=== PATIENT | female | born 1945 | race Caucasian/White ===

== ENCOUNTER 2017-02-17 08:42 | Day surgery (SDC) | payer MEDICARE ==
[~2017-02-17 08:42] MED LIST: DIPRIVAN 200 MG/20 ML IV ONE; Ketamine HCl 50 MG/ML IJ ONE
--- NOTE | 2017-02-17 08:54 | HP ---
DATE OF SURGERY: 02/17/2017 HISTORY OF PRESENT ILLNESS: The patient is a 71 year-old she chokes a lot with her lower esophagus most of the time, history of neck problems in the past. History of dilatation back in 2011 helped some, some burning and choking, solids worse occasionally than liquids. She had dysphagia lower esophagus. The patient for consideration of endoscopy. PAST MEDICAL HISTORY: Hypertension. PAST SURGICAL HISTORY: Knee replacement in the past. Back surgery in the past. Hysterectomy in the past. EGD with dilatation in the past. MEDICATIONS: Metoprolol, losartan. ALLERGIES: NKDA. FAMILY HISTORY: Negative for esophageal cancer. SOCIAL HISTORY: No smoking or alcohol abuse. REVIEW OF SYSTEMS: Twelve systems reviewed per admission assessment. No chest pain or palpitations other systems negative or noncontributory as above and per preadmission questionnaire. She had dilatation with Dr. Keene back in 2011. PHYSICAL EXAMINATION: GENERAL: No acute distress. HEENT: Sclerae nonicteric. NECK: No JVD. CHEST: Equal excursion, nonlabored breathing. CVS: Regular rate and rhythm. ABDOMEN: Soft. No peritoneal signs. EXTREMITIES: No significant edema. NEURO: Alert, moving extremities grossly symmetrically. No gross motor deficits noted. IMPRESSION: Dysphagia lower esophagus. I feel the patient would benefit from EGD possible biopsy, possible dilatation. Risks and benefits explained in detail but not limited to bleeding or infection, risk of bowel injury or perforation possibly requiring open procedure, small risk of missed or nondiagnosis or incomplete exam possibly requiring barium enema, other studies or procedures, as well as possible high risk of perforation on dilatation. She understands there is a possibility could need other dilatation down the road. She also understands that possibly may not improve her swallowing and may need further work up and/or testing or treatment. She understands and agrees to the planned procedure and will proceed with outpatient EGD, possible biopsy and possible dilatation as an outpatient.
[2017-02-17] MEDS ORDERED: Lactated Ringers 1,000 ML IV SCH (09:00)
[2017-02-17] MEDS ORDERED: Lactated Ringers 1,000 ML IV ONE (09:02)
[2017-02-17 12:20] VITALS: BP 166/95; PULSE 74; O2SAT 98
--- NOTE | 2017-02-17 12:59 | OP ---
SURGERY DATE/TIME: 02/17/2017 1025 PREOPERATIVE DIAGNOSES: 1) History of dysphagia. 2) History of prior esophageal dilatation. POSTOPERATIVE DIAGNOSES: 1) Symptomatic esophageal narrowing possible distal esophagus. 2) Prepyloric ulcer. 3) Mild gastritis. PROCEDURES: 1) EGD with cold biopsy of the antrum to evaluate for Helicobacter pylori. 2) Esophageal balloon dilatation distal esophagus with size 20 balloon dilator. 3) Esophageal dilatation proximal esophagus up to size 20 balloon dilator. SURGEON: Dr. Juan Alberto Villasenor. ANESTHESIA: MAC. ESTIMATED BLOOD LOSS: Minimal. INDICATIONS: As noted above. Risks and benefits explained in detail and not limited to and consent obtained. DESCRIPTION OF PROCEDURE AND FINDINGS: The patient was taken to the operating room. MAC anesthesia induced. After official time out and no disagreement with planned procedure, bite block positioned. Video gastroscope easily passed down the oropharynx. There was a little bit proximal esophageal narrowing and spasm. No evidence of any obvious masses, lesions. She had been complaining of having problems in this part of her throat and esophagus as well as swallowing. The scope was able to be passed down the distal part of the esophagus where the two areas had been dilated in the past. There was some esophageal narrowing. It was super tight and as she was having symptoms down there felt that balloon dilatation at the end of the procedure. There were no signs of any obvious masses in this area. The scope passed back down to the stomach. In the prepyloric area just right in front of the pylorus in the antral side was a punched out ulcer. Otherwise the scope was able to be passed into the small bowel and then around to the junction of the second and third portion of the duodenum. The duodenum and duodenal bulb grossly unremarkable. Back in the stomach cold biopsies taken of margin of ulcer to evaluate for Helicobacter pylori and path. On retroflex there is no evidence of any large hiatal hernia. Whether just a slight weakness there or not but no large hiatal hernia. There are no signs of any obvious mucosal lesions. The scope was withdrawn. Gastroesophageal junction was noted to be about 37 - 38 cm. Z-line was crisp. Just proximal to this there was esophageal spasm and narrowing whether slight Schatzki's ring or not but there is slight narrowing. She had complained of this area. It was felt best benefit to dilate this esophageal narrowing out. The scope is passed back down into the stomach. Balloon catheter inserted and pulled up into the distal esophagus and gradually inflated size 19 first and left for a minute or so and then up to size 20 balloon dilator for a couple of minutes. The balloon was then released. It was then pulled up into proximal esophageal narrowing and the inflated to size 19 once again and left for a minute or so and then increased up to size balloon dilator and left for a couple minutes, 2 to 2 1/2 minutes, and then released. When the catheter was removed the scope was then passed back down into the stomach. Good hemostasis noted at the biopsy site. The scope is slowly and carefully withdrawn. There is minimal ooze from abrasion in the distal and proximal esophagus but no evidence of any full thickness issues or injury. No signs of any active bleeding at this time. The scope is withdrawn. The patient tolerated the procedure well. Findings discussed with family out in the waiting area.
== END 2017-02-17 12:05 | disposition home or self-care (01) ==
LOC: SDC 08:42
PROVIDERS: ATTEND Surgery
PROC: 0DB68ZX Excision of Stomach, Via Natural or Artificial Opening Endoscopic, Diagnostic (ICD-10-PCS; principal; 2017-02-17)
PROC: 0D738ZZ Dilation of Lower Esophagus, Via Natural or Artificial Opening Endoscopic (ICD-10-PCS; 2017-02-17)
PROC: 0D718ZZ Dilation of Upper Esophagus, Via Natural or Artificial Opening Endoscopic (ICD-10-PCS; 2017-02-17)
DX: K22.2 Esophageal obstruction (principal); K25.9 Gastric ulcer, unspecified as acute or chronic, without hemorrhage or perforation; K29.70 Gastritis, unspecified, without bleeding
CPT/HCPCS: 36415; 43239; 43249; C1726; 00740; 99100; J2704

== ENCOUNTER 2017-06-02 08:13 | Day surgery (SDC) | payer MEDICARE ==
--- NOTE | 2017-05-31 15:13 | HP ---
DATE OF SURGERY: 06/02/2017 HISTORY OF PRESENT ILLNESS: The patient is a 72 year-old with some hiccups and some epigastric discomfort. She has prior history of prepyloric ulcer and is in need of follow up upper endoscopy at this time. PAST MEDICAL HISTORY: She has had hypertension, history of ulcer in the past. PAST SURGICAL HISTORY: Neck surgery, hysterectomy, cholecystectomy, knee replacement and endoscopy in the past. MEDICATIONS: Metoprolol, losartan. ALLERGIES: NKDA. FAMILY HISTORY: Negative in regards to this problem. SOCIAL HISTORY: No smoking or alcohol abuse. REVIEW OF SYSTEMS: Twelve systems reviewed per admission assessment. No chest pain or palpitations other systems negative or noncontributory as above and per preadmission questionnaire. PHYSICAL EXAMINATION: GENERAL: No acute distress. HEENT: Sclerae nonicteric. NECK: No JVD. CHEST: Equal excursion, nonlabored breathing. CVS: Regular rate and rhythm. ABDOMEN: Soft. No peritoneal signs. EXTREMITIES: No significant edema. NEURO: Alert, moving extremities symmetrically. No gross motor deficits noted. IMPRESSION: History of prepyloric ulcer in need of follow up upper endoscopy. Risks and benefits explained in detail including but not limited to bleeding or infection, risk of bowel injury or perforation possibly requiring open procedure, risk of missed or nondiagnosis or incomplete exam possibly requiring other studies, general risk of anesthesia or sedation but not limited to. She understands and agrees to the planned procedure and will proceed with EGD possible biopsy as an outpatient.
[~2017-06-02 08:13] MED LIST changes: -DIPRIVAN 200 MG/20 ML IV ONE; -Ketamine HCl 50 MG/ML IJ ONE; +Lactated Ringers 1,000 ML IV SCH
[2017-06-02] MEDS ORDERED: DIPRIVAN 200 MG/20 ML IV ONE (08:14)
[2017-06-02] MEDS ORDERED: Ketamine HCl 50 MG/ML IV ONE (08:14)
[2017-06-02] MEDS ORDERED: Lactated Ringers 1,000 ML IV ONE (08:18)
[2017-06-02 11:02] VITALS: O2SAT 97
[2017-06-02 11:32] VITALS: BP 132/72; PULSE 71
--- NOTE | 2017-06-02 13:08 | OP ---
SURGERY DATE/TIME: 06/02/2017 1010 PREOPERATIVE DIAGNOSIS: History of prepyloric ulcers. POSTOPERATIVE DIAGNOSES: 1) Gastritis. 2) Prepyloric ulcers some improvement since last endoscopy. PROCEDURE: EGD with cold biopsy of the antrum and margin of prepyloric ulcers for path and to evaluate for Helicobacter pylori. SURGEON: Dr. Juan Alberto Villasenor. ANESTHESIA: MAC. ESTIMATED BLOOD LOSS: Minimal. INDICATIONS: As noted above. Risks and benefits explained in detail and not limited to and consent obtained. DESCRIPTION OF PROCEDURE AND FINDINGS: The patient is taken to the operating room. MAC anesthesia introduced. After official time out and no disagreement with planned procedure, bite block positioned. Video gastroscope easily passed down the esophagus through the patent pylorus to the junction of the second and third portion of the duodenum. Duodenum and duodenal bulb grossly unremarkable. Back at the prepyloric area there was a prepyloric ulcer. It seemed to be a little bit better than last time. It was persistent. It should be noted the patient has taken Protonix but is still taking Naprosyn according to the medication list. There were little tiny aphthous ulcers right in the just proximal or right at the pyloric channel, prepyloric area ulcer. On retroflex she had small hiatal hernia. No signs of any other more proximal ulcers, masses or polyps. Gastroesophageal junction about 39 cm. The z-line was crisp. No significant signs of other esophagitis or any other esophageal mucosal lesions on withdrawal of the scope. The scope is withdrawn. The patient tolerated the procedure well. There were no immediate complications. It was felt she could consider trying to use other alternatives other than Naprosyn given her persistent ulcers even despite proton pump inhibitors. Otherwise could consider gastrointestinal or other work up although her ulcers do not seem any worse. May try another alternative of Naprosyn to allow for complete healing.
== END 2017-06-02 11:35 | disposition home or self-care (01) ==
LOC: SDC 08:13
PROVIDERS: ATTEND Surgery
PROC: 0DB78ZX Excision of Stomach, Pylorus, Via Natural or Artificial Opening Endoscopic, Diagnostic (ICD-10-PCS; principal; 2017-06-02)
DX: K29.70 Gastritis, unspecified, without bleeding (principal); Z87.11 Personal history of peptic ulcer disease; I10 Essential (primary) hypertension
CPT/HCPCS: 00740; 36415; 88305; 88312; 99100; J2704

== ENCOUNTER 2017-09-22 08:15 | Day surgery (SDC) | payer MEDICARE ==
--- NOTE | 2017-09-19 14:58 | HP ---
DATE OF SURGERY: 09/22/2017 HISTORY OF PRESENT ILLNESS: The patient is a 72 year-old has prior history of epigastric pain and ulcer in the past. She improved on follow up endoscopy but had some increased epigastric pain recently with some bloating and also had some rectal bleeding recently. The last colonoscopy was five years or so ago. She is in need of follow up colonoscopy with rectal bleeding as well as she had increased epigastric pain and prior history of ulcer disease, need follow up upper endoscopy for further evaluation. PAST MEDICAL HISTORY: Hypertension, reflux, ulcer disease. PAST SURGICAL HISTORY: She had knee replaced, back surgery, hysterectomy, cholecystectomy and also endoscopy in the past. MEDICATIONS: Metoprolol, losartan, Prilosec. ALLERGIES: RANOLAZINE, CELECOXIB. FAMILY HISTORY: Negative in regards to this problem. SOCIAL HISTORY: No smoking or alcohol abuse. REVIEW OF SYSTEMS: Twelve systems reviewed per admission assessment. No chest pain or palpitations other systems negative or noncontributory as above and per preadmission questionnaire. PHYSICAL EXAMINATION: GENERAL: No acute distress. HEENT: Sclerae nonicteric. NECK: No JVD. CHEST: Equal excursion, nonlabored breathing. CVS: Regular rate and rhythm. ABDOMEN: Soft. No peritoneal signs. She has some mild tenderness epigastrium. EXTREMITIES: No significant edema. NEURO: Alert, oriented, moving extremities symmetrically. No gross motor deficits noted.
[2017-09-22] MEDS ORDERED: DIPRIVAN 200 MG/20 ML IV ONE (08:16)
[2017-09-22] MEDS ORDERED: Ketamine HCl 50 MG/ML IJ ONE (08:16)
[2017-09-22] MEDS ORDERED: Lactated Ringers 1,000 ML IV ONE ×2 (08:35→09:10)
[2017-09-22 12:46] VITALS: O2SAT 95
[2017-09-22 12:47] VITALS: BP 151/84; PULSE 88
--- NOTE | 2017-09-23 08:23 | OP ---
SURGERY DATE/TIME: 09/22/2017 1110 PREOPERATIVE DIAGNOSES: 1) History of increased epigastric pain, prior history of peptic ulcer disease. 2) Rectal bleeding, need for follow up colonoscopy. POSTOPERATIVE DIAGNOSES: 1) Pyloric channel ulcer with some minimal to mild gastritis. 2) Slight hiatal hernia. 3) Poor colon prep limiting the exam particularly right colon. 4) Very tortuous colon. 5) Small raised lesion rectum versus hyperplastic lesion. PROCEDURES: 1) EGD with cold biopsy of small bowel to evaluate for celiac sprue. 2) Cold biopsy of the antrum to evaluate for Helicobacter pylori. 3) Colonoscopy to cecum and tip of the terminal ileum with hot biopsy rectum. SURGEON: Dr. Juan Alberto Villasenor. ANESTHESIA: MAC. ESTIMATED BLOOD LOSS: Minimal. INDICATIONS: As noted above. Risks and benefits explained in detail and not limited to and consent obtained. DESCRIPTION OF PROCEDURE AND FINDINGS: The patient is taken to the endoscopy suite. MAC anesthesia introduced. After official time out and no disagreement with planned procedure, bite block positioned. Video gastroscope easily passed down the esophagus. In the gastroesophageal junction Z-line was crisp. No signs of any mendez esophagitis or esophageal lesion. There was a very slight hiatal hernia. Scope passed down to the stomach. There was some minimal to mild gastritis with evidence of an old villous superficial erosion. She did have a pyloric channel area ulcer with some inflammation, this did not seem to be as large as the very initial ulcer but whether it did improve more and then get a little worse recently. She did have a pyloric channel ulcers. Otherwise the scope passed into the duodenal bulb. The first and second portion of the duodenum to the junction of the second and third portion. On withdrawal of the scope cold biopsies taken to evaluate for celiac sprue. Otherwise no obvious masses in the duodenum or duodenal bulb. Back in the stomach there had been just a little raw area passing the scope past the ulcer. No active bleeding from the ulcer itself just from the inflammation around it. Cold biopsy taken in the antrum to evaluate for Helicobacter pylori. Good hemostasis noted. Otherwise on retroflex again very slight hiatal hernia nothing that needed surgical repair. The scope was straightened, pulled back to gastroesophageal junction. The Z-line was crisp. No signs of any esophageal mucosal lesions. No signs of any narrowing. The scope is withdrawn. The patient tolerated this portion of the procedure well. Her daughter was instructed she should take a proton pump inhibitor maybe twice a day for a week and then cut back once a day while awaiting the Helicobacter pylori results. Attention was then turned to the colonoscopy. Digital rectal exam did not reveal any rectal masses. She did have some small internal and external hemorrhoids. Video colonoscope inserted and passed up through the very tortuous sigmoid, descending and transverse colon. Looping down the light could be transluminated in far deep right lower quadrant. However with external palpation, pressure and two different individuals pressing on the abdomen at the same time the scope was able to be passed around finally to the cecum, appendiceal orifice and valve visualized and the very tip of the terminal ileum was visualized and grossly unremarkable. Prep overall was poor particularly in the right colon with some semi-solid liquidy stools, some solid stool limiting the exam. The scope is slowly and carefully withdrawn. There were no signs of any large polyps, masses or obstructing lesions throughout the colon. She did have some diverticulosis, few rare diverticula. She did have some small internal and external hemorrhoids otherwise there was a very small 2 mm or less raised lesion in distal rectum which was removed with hot biopsy forceps with brief burst of cautery. Good hemostasis noted. Whether this is a simple hyperplasia of the mucosa versus early polyp it was removed with hot biopsy forceps. The scope is withdrawn. The patient tolerated the procedure well. Again, it was a quite difficult colon exam given her very tortuous colon but accomplished slowly and carefully as safe as possible. Findings discussed with the family out in the waiting area. She was transferred to the recovery room in stable condition.
== END 2017-09-22 12:45 | disposition home or self-care (01) ==
LOC: SDC 08:15
PROVIDERS: ATTEND Surgery
PROC: 0DB78ZX Excision of Stomach, Pylorus, Via Natural or Artificial Opening Endoscopic, Diagnostic (ICD-10-PCS; principal; 2017-09-22)
PROC: 0DB88ZX Excision of Small Intestine, Via Natural or Artificial Opening Endoscopic, Diagnostic (ICD-10-PCS; 2017-09-22)
PROC: 0DBB8ZX Excision of Ileum, Via Natural or Artificial Opening Endoscopic, Diagnostic (ICD-10-PCS; 2017-09-22)
DX: K25.9 Gastric ulcer, unspecified as acute or chronic, without hemorrhage or perforation (principal); R10.13 Epigastric pain; Z87.11 Personal history of peptic ulcer disease; K62.5 Hemorrhage of anus and rectum; K29.70 Gastritis, unspecified, without bleeding; K44.9 Diaphragmatic hernia without obstruction or gangrene; I10 Essential (primary) hypertension; Z79.899 Other long term (current) drug therapy
CPT/HCPCS: 00812; 93005; 99100; J2704

== ENCOUNTER 2019-01-15 13:51 | Emergency (ER) | payer MEDICARE ==
[2019-01-15 14:16] VITALS: PULSE 74; O2SAT 99
--- NOTE | 2019-01-15 14:24 | ERPHSYRPT ---
- History of Present Illness Time Seen by Provider: 01/15/19 14:21 Source: patient Patient Subjective Stated Complaint: I have been on keflex for the past few days for poss uti but I having trouble urinating and the back pain is getting worse. Triage Nursing Assessment: AAox3, color good, walked in, resp easy, lungs clear , no edema to extremeties. Pt states she has urinary hesitancy past couple days and states has feeling of fullnes in abd. Also c/o pain in left lower back that radiates to left groin area. Physician History: pt sent by Dr Cleaning for difficulty urinating, currently treated for uti w/ keflex, no fever, no incont, +urgency, no NV Allergies/Adverse Reactions: ranolazine [From Ranexa] Allergy (Mild, Verified 09/22/17 09:06) itching and constipation celecoxib [From Celebrex] Adverse Reaction (Severe, Verified 09/22/17 09:06) Nausea and Vomiting Home Medications: Cholecalciferol (Vitamin D3) [Vitamin D3] 2,000 unit PO DAILY 09/25/13 [History] Metoprolol Succinate 25 mg PO DAILY 09/25/13 [History] PANTOPRAZOLE 40 mg Tablet [Protonix 40MG Tablet] 40 mg PO DAILY 05/30/17 [ History] Fluoxetine HCl [Prozac] 1 tab PO DAILY 09/09/17 [History] Losartan Potassium 1 tab PO DAILY 09/09/17 [History] Cephalexin Mh 500 mg [Keflex 500 mg] 500 mg PO QID 01/15/19 [History] Hx Tetanus, Diphtheria Vaccination/Date Given: Yes Hx Influenza Vaccination/Date Given: Yes Hx Pneumococcal Vaccination/Date Given: No Immunizations Up to Date: Yes - Review of Systems Constitutional: No Fever Eyes: No Eye Redness Ears, Nose, & Throat: No Nose Congestion Respiratory: No Cough, No Dyspnea Cardiac: No Chest Pain Abdominal/Gastrointestinal: No Abdominal Pain, No Vomiting Genitourinary Symptoms: Dysuria, Frequency, Hesitancy, Urgency, No Incontinence Musculoskeletal: Back Pain Skin: No Rash Neurological: No Dizziness - Past Medical History Pertinent Past Medical History: Yes Neurological History: No Pertinent History ENT History: Cataracts Cardiac History: Angina, High Cholesterol, Hypertension Respiratory History: No Pertinent History Endocrine Medical History: No Pertinent History Musculoskeletal History: Arthritis GI Medical History: GERD, Ulcer History: No Pertinent History Psycho-Social History: Depression Female Reproductive Disorders: No Pertinent History Other Medical History: bladder infection, finished antibiotics 10days ago, compression of cervical vertebrae - Past Surgical History Past Surgical History: Yes Neuro Surgical History: No Pertinent History Cardiac: No Pertinent History Respiratory: No Pertinent History Gastrointestinal: No Pertinent History Genitourinary: No Pertinent History Musculoskeletal: Orthopedic Surgery Female Surgical History: Section, Hysterectomy Other Surgical History: cataract in left eye. Back and R knee. - Social History Smoking Status: Never smoker Exposure to second hand smoke: Yes Drug Use: none Patient Lives Alone: Yes - Female History Hx Now: No - Nursing Vital Signs Nursing Vital Signs: Initial Vital Signs Temperature 97.7 F 01/15/19 14:04 Pulse Rate 74 01/15/19 14:04 Respiratory Rate 18 01/15/19 14:04 Blood Pressure 150/79 01/15/19 14:04 O2 Sat by Pulse Oximetry 99 01/15/19 14:04 Pain Scale Pain Intensity 8 - Physical Exam General Appearance: no apparent distress Eye Exam: eyes nml inspection Neck Exam: normal inspection Respiratory Exam: normal breath sounds Cardiovascular Exam: regular rate/rhythm Gastrointestinal/Abdomen Exam: soft, No tenderness Back Exam: normal range of motion, No vertebral tenderness Extremity Exam: normal inspection Neurologic Exam: alert, oriented x 3, cooperative Skin Exam: normal color, warm, dry SpO2 Interpretation: normal SpO2: 99 - Course Nursing assessment & vital signs reviewed: Yes - CT Exams Abdomen/Pelvis CT Interpretation: Negative, Discussed w/radiologist Ordered Tests: Active Orders 24 hr Category Date Time Status Avitia [Catheter-Balaton Avitia] STAT Care 01/15/19 14:20 Active ABDOMEN AND PELVIS W/0 CONTRAS [CT] Stat Exams 01/15/19 14:40 Completed - Progress Progress: improved Progress Note: 01/15/19 15:38 150 cc urine per avitia, treatment and disposition d/w Dr Cleaning, oral fluids, return if worse, continue outpatient antibiotic - Departure Departure Disposition: Home Clinical Impression: UTI (urinary tract infection) Qualifiers: Urinary tract infection type: acute cystitis Hematuria presence: with hematuria Qualified Code(s): N30.01 - Acute cystitis with hematuria Condition: Stable Critical Care Time: No Referrals: SUZETTE CLEANING [Primary Care Provider] - Instructions: Urinary Retention (DC)
--- NOTE | 2019-01-15 15:24 | XRAY ---
Indication: Low back/left flank pain. Difficulty urinating. Renal stone. Multiple contiguous axial images obtained through the abdomen and pelvis without contrast using renal stone protocol. Comparison: September 07, 2018. Lung bases again demonstrates bibasilar atelectasis/scarring and right posterior calcified granuloma. No infiltrate or effusion. Heart is not enlarged. Stable small hiatal hernia. Stable punctate right renal cortical calcifications and left renal cyst. Again no renal calculus or evidence for obstructive uropathy in either system. Urinary bladder demonstrates new tiny air bubble either iatrogenic from recent catheterization versus gas-forming bacterial infection. Noncontrasted stomach and bowel loops appear nonobstructed. Normal appendix. Again mild scattered colonic fecal debris greatest in the right hemicolon. Stable descending and sigmoid diverticulosis. Stable hepatic/splenic calcified granulomas, cholecystectomy, and hysterectomy. No free fluid/air. Remaining liver, pancreas, spleen, adrenal glands, kidneys, ureters, and bladder appear unremarkable for noncontrast exam. Stable moderate aortoiliac calcifications without AAA. Osseous structures again demonstrates advanced multilevel degenerative spondylosis, dextrorotoscoliosis, and L4-L5 fusion surgery/laminectomy with intact posterior spinal hardware. Impression: 1. Negative renal calculus or evidence for obstructive uropathy. New urinary bladder air bubble either iatrogenic versus gas-forming bacterial infection. Stable right renal cortical punctate calcifications and left renal cyst. 2. Again incidental colonic diverticulosis, small hiatal hernia, degenerative spondylosis, dextrorotoscoliosis, lower lumbar surgery, and evidence for old granulomatous disease. CT DI 16.92
[2019-01-15 16:03] VITALS: BP 139/90
== END 2019-01-15 16:03 | disposition home or self-care (01) ==
LOC: ED 13:51
DX: N30.01 Acute cystitis with hematuria (principal); I10 Essential (primary) hypertension; E78.00 Pure hypercholesterolemia, unspecified; K21.9 Gastro-esophageal reflux disease without esophagitis; M19.90 Unspecified osteoarthritis, unspecified site; Z79.899 Other long term (current) drug therapy; F32.9 Major depressive disorder, single episode, unspecified
CPT/HCPCS: 51702; 74176; 99284

== ENCOUNTER 2019-04-23 13:59 | Inpatient (IN) | payer MEDICARE | END 2019-04-30 16:20 | disposition home or self-care (01) | LOC: MED SURG 13:59 ==

== ENCOUNTER 2019-07-26 08:19 | Day surgery (SDC) | payer MEDICARE ==
--- NOTE | 2019-07-26 07:57 | HP ---
DATE OF SURGERY: 07/26/2019 HISTORY OF PRESENT ILLNESS: The patient is a 74 year-old with dysphagia, choking at a restaurant, upper mid esophagus. She is in need of upper endoscopy possible biopsy, possible dilatation. PAST MEDICAL HISTORY: She had some pyloric stenosis in the past, hiatal hernia in the past, anxiety and depression, hypertension, osteoarthritis, peptic ulcer disease in the past. She had some arthritis. PAST SURGICAL HISTORY: Knee surgery. Back surgery. Hysterectomy. Shoulder surgery. Colonoscopy. EGD. Knee replacement in the past. MEDICATIONS: She has been on atorvastatin, buspirone, Colace, isosorbide mononitrate, levothyroxine, Linzess, losartan, metoprolol, nitroglycerin, sublingual omeprazole. She has been on [id number] tablet. She has been on Prozac and Ventolin HFA. ALLERGIES: RANOLAZINE, CELECOXIB. FAMILY HISTORY: Negative in regards to this problem. SOCIAL HISTORY: No alcohol abuse. REVIEW OF SYSTEMS: Fourteen systems reviewed. No chest pain or palpitations other systems negative or noncontributory as above and per preadmission questionnaire. PHYSICAL EXAMINATION: GENERAL: No acute distress. HEENT: Sclerae nonicteric. NECK: No JVD. CHEST: Equal excursion, nonlabored breathing. CVS: Regular rate and rhythm. ABDOMEN: Soft. No peritoneal signs. EXTREMITIES: No significant edema. NEURO: Alert, oriented, moving extremities symmetrically. No gross motor deficits noted. IMPRESSION: Dysphagia. I feel the patient needs EGD, possible biopsy, possible dilatation. Risks and benefits explained in detail including but not limited to bleeding or infection, risk of bowel injury or perforation possibly requiring open procedure, risk of missed or nondiagnosis or incomplete exam possibly requiring barium swallow, other studies or procedures. General risk of anesthesia or sedation. She understands possibility if dilatation improves her swallowing may need to be repeated down the road or possibly it could be more of a functional neurologic issue that may not improve with dilatation and may require further work up and/or testing, other studies or procedures. She understands and agrees to the planned procedure and will proceed with EGD with possible biopsy, possible dilatation as an outpatient.
[2019-07-26] MEDS ORDERED: Lactated Ringers 1,000 ML IV ONE (08:29)
[2019-07-26] MEDS ORDERED: Lactated Ringers 1,000 ML IV SCH (08:30)
[2019-07-26] MEDS ORDERED: Ketamine HCl 50 MG/ML ONE (10:24)
[2019-07-26] MEDS ORDERED: DIPRIVAN 200 MG/20 ML IV ONE (10:24)
[2019-07-26 11:59] VITALS: BP 148/80; PULSE 74; O2SAT 94
--- NOTE | 2019-07-27 08:01 | OP ---
SURGERY DATE/TIME: 07/26/2019 1025 PREOPERATIVE DIAGNOSIS: History of choking episodes and dysphasia, need for upper endoscopy. POSTOPERATIVE DIAGNOSES: 1) Mild erosive gastritis in the antrum. 2) Proximal esophageal spasm and narrowing without evidence of any mass. 3) Two lesser extent distal esophageal narrowing and spasm requiring dilatation. PROCEDURES: 1) EGD with cold biopsy of the antrum to evaluate for Helicobacter pylori. 2) Random cold biopsy to the esophagus to evaluate for eosinophilic esophagitis. 3) Esophageal balloon dilatation symptomatic proximal esophageal narrowing and spasm (size 20 balloon). 4) Distal esophageal narrowing and spasm dilatation (size 20 balloon). SURGEON: Dr. Juan Alberto Villasenor. ANESTHESIA: MAC. ESTIMATED BLOOD LOSS: Minimal. INDICATIONS: As noted above. Risks and benefits explained in detail and not limited to and consent obtained. DESCRIPTION OF PROCEDURE AND FINDINGS: The patient is taken to the operating room. MAC anesthesia introduced. After official time out and no disagreement with planned procedure, bite block positioned. Video gastroscope passed down the oropharynx with some proximal esophageal narrowing and spasm. This seemed to be where she was having choking area. There was no evidence of any mass or lesion to biopsy but definitely a narrowed area there. The scope was able to be just passed through here and the distal esophagus seemed to have a little bit of narrowing and spasm in this area. There was concern whether this may cause some issues down the road it was felt this warranted dilatation. The scope was able to be just passed through here this was not quite as tight as the upper area. The scope passed through the patent pylorus to the junction of the second and third portion of the duodenum. Duodenum and duodenal bulb were grossly unremarkable. There was some erosive gastritis in the pyloric channel antral area. No gross ulceration. Cold biopsy taken to evaluate for Helicobacter pylori. On retroflex there is no significant hiatal hernia. The scope was straightened. Gastroesophageal junction about 40 cm. Z-line was fairly crisp. Given her spasms some random cold biopsies were taken for eosinophilic esophagitis in the esophagus. Otherwise scope passed back down into the stomach. Balloon catheter carefully passed through under direct vision and then pulled back to the distal esophageal narrowing this is slowly and carefully balloon inflated to 19 for about 40 to 45 seconds and then finally the size 20 balloon dilator approximately 2 minutes. The balloon was then decompressed. There was no evidence of mucosal lesions more proximal esophagus. The balloon catheter is carefully pulled up through the proximal esophageal narrowing and spasm area. The balloon was carefully inflated 18 for 30 to 45 seconds size 19 for approximately 45 seconds and then finally size 20 balloon dilator a little bit over 1 to 1 1/2 minutes. The patient stopped maintaining her saturations and anesthesia asked to remove the balloon at this point. It was deflated and removed. The patient's saturations were fine. Once the balloon catheter was removed the scope much more easily passed through this proximal distal area. Minimal abrasion proximal esophagus and distal esophagus. No evidence of any full thickness issues or injury. The scope is withdrawn. The patient tolerated the procedure well. There were no immediate complications.
== END 2019-07-26 11:50 | disposition home or self-care (01) ==
LOC: SDC 08:19
PROVIDERS: ATTEND Surgery
DX: K29.00 Acute gastritis without bleeding (principal); K22.4 Dyskinesia of esophagus; K22.2 Esophageal obstruction; R47.02 Dysphasia; R09.89 Other specified symptoms and signs involving the circulatory and respiratory systems; F41.9 Anxiety disorder, unspecified; F32.9 Major depressive disorder, single episode, unspecified; I10 Essential (primary) hypertension; M19.90 Unspecified osteoarthritis, unspecified site; Z87.11 Personal history of peptic ulcer disease
CPT/HCPCS: 99100; J2704

== ENCOUNTER 2020-09-27 11:26 | Day surgery (SDC) | payer MEDICARE ==
[2012-07-02 10:50] VITALS: BP 128/63
[2020-09-27] MEDS ORDERED: Depo-Medrol 40 MG/ML IM ONE (11:27)
[2020-09-27] MEDS ORDERED: BUPIVACAINE 0.5% VIAL IJ ONE (11:27)
[2020-09-27] MEDS ORDERED: Ketamine HCl 50 MG/ML ONE (13:23)
[2020-09-27] MEDS ORDERED: DIPRIVAN 200 MG/20 ML IV ONE (13:23)
--- NOTE | 2020-09-27 14:12 | XRAY ---
Indication: Right SI joint injection. Intraoperative fluoroscopy was provided for 16 seconds. 2 digital spot images submitted for interpretation demonstrates posterior needle tip projecting over the inferior right SI joint. Correlate with intraoperative findings/report.
--- NOTE | 2020-09-27 15:05 | XRAY ---
16 seconds of fluoroscopy was used in surgery for a right SI joint injection.
[2020-09-27] MEDS ORDERED: Lactated Ringers 1,000 ML IV ONE (15:56)
== END 2020-09-27 13:42 | disposition home or self-care (01) ==
LOC: SDC-PAIN 11:26
PROVIDERS: ATTEND Psychiatry & Neurology Pain Medicine
DX: M46.1 Sacroiliitis, not elsewhere classified (principal); I10 Essential (primary) hypertension; K21.9 Gastro-esophageal reflux disease without esophagitis; F41.9 Anxiety disorder, unspecified; Z79.899 Other long term (current) drug therapy
CPT/HCPCS: 27096; 72020; 77002; G0260; 99100; J1030; J2704

== ENCOUNTER 2022-03-14 13:39 | Emergency (ER) | payer MEDICARE ==
--- NOTE | 2022-03-14 14:35 | XRAY ---
Indication: Cough. Positive Covid 19. Comparison: July 09, 2021. Portable chest again demonstrates minimal bibasilar discoid atelectasis/scarring and small right base calcified granuloma. Remaining heart and lungs unremarkable again with incidental tortuous descending aorta. Bony thorax intact again with osteopenia, degenerative changes, and double curvature scoliosis. Impression: Continued nonacute chest with chronic features.
[2022-03-14 14:48] LABS: Absolute Neutrophil Ct (ANC) 3.25 x10^3/uL (1.4-6.9); Basophil (Absolute #) 0.03 x10^3/uL (0-0.4); Eosinophil % 0.2 % (0.00-5.0); Eosinophil (Absolute #) 0.01 x10^3/uL (0-0.5); Hematocrit 34.3 % (35-47); Hemoglobin 11.3 g/dL (12.0-16.0); Lymphocyte (Absolute #) 1.57 x10^3/uL (1.0-4.6); Lymphocytes % 28.3 % (24.0-44.0); Mean Cell Volume 99.1 fL (78-100); Mean Corpuscular Hemoglobin 32.7 pg (26-32); Mean Corpuscular Hgb Concent. 32.9 g/dL (32-36); Mean Platelet Volume 10.8 fL (7.5-11.0); Monocyte (Absolute #) 0.67 x10^3/uL (0.0-1.3); Monocytes % 12.1 % (0.0-12.0); Neutrophil % 58.5 % (36.0-66.0); Platelet Count 208 x10^3/uL (150-450); Red Blood Count 3.46 x10^6/uL (4.1-5.4); Red Cell Distribution Width 11.9 % (11.5-14.0); White Blood Count 5.6 x10^3/uL (4.0-10.5)
[2022-03-14 15:01] LABS: ALBUMIN 4.1 g/dL (3.5-5.0); ANION GAP 12.6 MEQ/L (5-15); BILIRUBIN,TOTAL 0.3 mg/dL (0.2-1.3); Calcium 9.1 mg/dL (8.4-10.2); Creatinine 1 1.51 mg/dL (0.52-1.04); EST GLOMERULAR FILTRATION RATE 35.4 ML/MIN; Potassium 4.5 mmol/L (3.5-5.1); Total Protein 7.1 g/dL (6.3-8.2)
[2022-03-14 15:04] VITALS: BP 104/63; PULSE 64; O2SAT 98
--- NOTE | 2022-03-14 15:40 | ERPHSYRPT ---
- History of Present Illness Time Seen by Provider: 03/14/22 13:42 Source: patient, family Exam Limitations: no limitations Patient Subjective Stated Complaint: Pt states "I do not feel well. I had a home test for covid yesterday." Triage Nursing Assessment: Pt presented alert and oriented X 3, skin pwd Pt ambulates with an upright steady gait, able to speak in clear full sentences pt in no apaprent respiratory distress. Pt resting comfortably on the bed. Physician History: 76 years old female presented in the ER with 1 week history of cough congestion, body aches, low-grade subjective fever or chills, fatigue and tiredness. She was tested positive for COVID-19 yesterday. Today she coughed up couple of times and checked her home SPO2 pulse ox which was in mid 80s. Patient walked in the ER without any difficulty breathing and is saturating around 97% on room air. Denies any chest pain palpitations or shortness of breath. She wants to make sure that she has no pneumonia. Timing/Duration: week(s) (1), gradual onset, worse Cough Quality/Degree: dry cough, productive cough Possible Cause: no prior episodes Modifying Factors: Improves With: albuterol inhaler. Worsens With: coughing, exertion Associated Symptoms: chills, chest pain/soreness, cough, muscle aches Allergies/Adverse Reactions: ranolazine [From Ranexa] Allergy (Mild, Verified 07/26/19 09:00) itching and constipation celecoxib [From Celebrex] Adverse Reaction (Severe, Verified 07/26/19 09:00) Nausea and Vomiting Home Medications: Atorvastatin Calcium [Lipitor] 10 mg PO DAILY 04/23/19 [History] Isosorbide Mononitrate 30 mg [Imdur 30 MG] 30 mg PO DAILY 04/23/19 [History] Metoprolol Tartrate 25 mg [Lopressor 25MG Tab] 25 mg PO BID 04/23/19 [History] Buspirone HCl 7.5 mg PO BID 07/20/19 [History] Omeprazole 20 mg PO DAILY 07/20/19 [History] Venlafaxine HCl [Effexor Xr] 150 mg PO DAILY 07/26/19 [History] Amlodipine Besylate [Norvasc] 2.5 mg PO DAILY 03/14/22 [History] Hx Tetanus, Diphtheria Vaccination/Date Given: Yes Hx Influenza Vaccination/Date Given: Yes Hx Pneumococcal Vaccination/Date Given: No Immunizations Up to Date: Yes Travel Risk - International Travel Have you traveled outside of the country in past 3 weeks: No - Coronavirus Screening Are you exhibiting any of the following symptoms?: Yes Symptoms: Cough: New Onset, Headaches/Body Aches/Fatigue Close contact with a COVID-19 positive Pt in past 14-21 Days: No - Vaccine Status Have you recieved a Covid-19 vaccination: Yes Clinical Specialist: [employer] - Vaccination Dates Date of 2cond Vaccination (if applicable): 2020 - Review of Systems Constitutional: Chills, Fatigue, Weakness Eyes: No Symptoms Ears, Nose, & Throat: Nose Congestion, Throat Swelling Respiratory: Cough Cardiac: No Symptoms Abdominal/Gastrointestinal: No Symptoms Musculoskeletal: Back Pain Skin: No Symptoms Neurological: No Symptoms Endocrine: No Symptoms Hematologic/Lymphatic: No Symptoms - Past Medical History Pertinent Past Medical History: Yes Neurological History: No Pertinent History ENT History: Cataracts Cardiac History: Angina, High Cholesterol, Hypertension Respiratory History: No Pertinent History Endocrine Medical History: Hypothyroidism Musculoskeletal History: Other GI Medical History: GERD, Ulcer History: No Pertinent History Psycho-Social History: Anxiety, Depression Female Reproductive Disorders: No Pertinent History Other Medical History: PT. HAD R and left total knee replacement SEVERAL YEARS AGO; HX LB SX (FUSION) SEVERAL YEARS AGO - Past Surgical History Past Surgical History: Yes Neuro Surgical History: No Pertinent History Cardiac: No Pertinent History Respiratory: No Pertinent History Gastrointestinal: No Pertinent History Genitourinary: No Pertinent History Musculoskeletal: Orthopedic Surgery Female Surgical History: Section, Hysterectomy Other Surgical History: cataract in left eye. Back and R knee, left knee - Social History Smoking Status: Never smoker Exposure to second hand smoke: Yes Drug Use: none Patient Lives Alone: No - Nursing Vital Signs Nursing Vital Signs: Initial Vital Signs Temperature 97.5 F 03/14/22 13:44 Pulse Rate 71 03/14/22 13:44 Respiratory Rate 03/14/22 13:44 Blood Pressure 110/72 03/14/22 13:44 O2 Sat by Pulse Oximetry 96 03/14/22 13:44 Pain Scale Pain Intensity 4 - Physical Exam General Appearance: no apparent distress, alert Eye Exam: PERRL/EOMI, eyes nml inspection Ears, Nose, Throat Exam: normal ENT inspection, pharynx normal Neck Exam: normal inspection, supple, full range of motion Respiratory Exam: normal breath sounds, lungs clear Cardiovascular Exam: regular rate/rhythm, normal heart sounds Gastrointestinal/Abdomen Exam: soft, normal bowel sounds, No tenderness Back Exam: normal inspection Extremity Exam: normal inspection, normal range of motion Neurologic Exam: alert, oriented x 3, cooperative Skin Exam: normal color SpO2 Interpretation: normal SpO2: 98 O2 Delivery: Room Air Ordered Tests: Active Orders 24 hr Category Date Time Status CHEST 1 VIEW (PORTABLE) Stat Exams 03/14/22 14:15 Completed BLOOD CULTURE Stat Lab 03/14/22 14:36 Received CBC W DIFF Stat Lab 03/14/22 14:15 Completed CMP Stat Lab 03/14/22 14:15 Completed Lactic Acid Stat Lab 03/14/22 14:15 Completed PROCALCITONIN Stat Lab 03/14/22 14:15 Completed TROPONIN Q3H Lab 03/14/22 14:15 Completed TROPONIN Q3H Lab 03/14/22 17:15 Ordered TROPONIN Q3H Lab 03/14/22 20:15 Ordered TROPONIN Q3H Lab 03/14/22 23:15 Ordered TROPONIN Q3H Lab 03/15/22 02:15 Ordered UA W/RFX CULTURE Stat Lab 03/14/22 Ordered Lab/Rad Data: Laboratory Result Diagrams 03/14/22 14:15 03/14/22 14:15 Laboratory Results 03/14/22 03/14/22 03/14/22 Range/Units 14:15 14:15 14:15 WBC (4.0-10.5) x10^3/uL RBC (4.1-5.4) x10^6/uL Hgb (12.0-16.0) g/dL Hct (35-47) % MCV (78-100) fL MCH (26-32) pg MCHC (32-36) g/dL RDW (11.5-14.0) % Plt Count (150-450) x10^3/uL MPV (7.5-11.0) fL Gran % (36.0-66.0) % Immature Gran % (Auto) (0.00-0.4) % Nucleat RBC Rel Count (0.00-0.1) % Eos # (Auto) (0-0.5) x10^3/uL Immature Gran # (Auto) (0.00-0.03) x10^3u/L Absolute Lymphs (auto) (1.0-4.6) x10^3/uL Absolute Monos (auto) (0.0-1.3) x10^3/uL Absolute Nucleated RBC (0.00-0.01) x10^3u/L Lymphocytes % (24.0-44.0) % Monocytes % (0.0-12.0) % Eosinophils % (0.00-5.0) % Basophils % (0.0-0.4) % Absolute Granulocytes (1.4-6.9) x10^3/uL Basophils # (0-0.4) x10^3/uL Sodium 131 L (137-145) mmol/L Potassium 4.5 (3.5-5.1) mmol/L Chloride 101 (98-107) mmol/L Carbon Dioxide 22 (22-30) mmol/L Anion Gap 12.6 (5-15) MEQ/L BUN 32 H (7-17) mg/dL Creatinine 1.51 H (0.52-1.04) mg/dL Estimated GFR 35.4 ML/MIN Glucose 128 H (74-106) mg/dL Lactic Acid (0.4-2.0) Calcium 9.1 (8.4-10.2) mg/dL Total Bilirubin 0.30 (0.2-1.3) mg/dL AST 54 H (14-36) U/L ALT 24 (0-35) U/L Alkaline Phosphatase 62 (38-126) U/L Troponin I < 0.012 (0.000-0.034) ng/mL Serum Total Protein 7.1 (6.3-8.2) g/dL Albumin 4.1 (3.5-5.0) g/dL Procalcitonin 0.070 (0.030-0.080) ng/mL 03/14/22 03/14/22 Range/Units 14:15 14:15 WBC 5.6 (4.0-10.5) x10^3/uL RBC 3.46 L (4.1-5.4) x10^6/uL Hgb 11.3 L (12.0-16.0) g/dL Hct 34.3 L (35-47) % MCV 99.1 (78-100) fL MCH 32.7 H (26-32) pg MCHC 32.9 (32-36) g/dL RDW 11.9 (11.5-14.0) % Plt Count 208 (150-450) x10^3/uL MPV 10.8 (7.5-11.0) fL Gran % 58.5 (36.0-66.0) % Immature Gran % (Auto) 0.4 (0.00-0.4) % Nucleat RBC Rel Count 0.0 (0.00-0.1) % Eos # (Auto) 0.01 (0-0.5) x10^3/uL Immature Gran # (Auto) 0.02 (0.00-0.03) x10^3u/L Absolute Lymphs (auto) 1.57 (1.0-4.6) x10^3/uL Absolute Monos (auto) 0.67 (0.0-1.3) x10^3/uL Absolute Nucleated RBC 0.00 (0.00-0.01) x10^3u/L Lymphocytes % 28.3 (24.0-44.0) % Monocytes % 12.1 H (0.0-12.0) % Eosinophils % 0.2 (0.00-5.0) % Basophils % 0.5 (0.0-0.4) % Absolute Granulocytes 3.25 (1.4-6.9) x10^3/uL Basophils # 0.03 (0-0.4) x10^3/uL Sodium (137-145) mmol/L Potassium (3.5-5.1) mmol/L Chloride (98-107) mmol/L Carbon Dioxide (22-30) mmol/L Anion Gap (5-15) MEQ/L BUN (7-17) mg/dL Creatinine (0.52-1.04) mg/dL Estimated GFR ML/MIN Glucose (74-106) mg/dL Lactic Acid 1.2 (0.4-2.0) Calcium (8.4-10.2) mg/dL Total Bilirubin (0.2-1.3) mg/dL AST (14-36) U/L ALT (0-35) U/L Alkaline Phosphatase (38-126) U/L Troponin I (0.000-0.034) ng/mL Serum Total Protein (6.3-8.2) g/dL Albumin (3.5-5.0) g/dL Procalcitonin (0.030-0.080) ng/mL - Progress Progress: re-examined Air Movement: good Progress Note: 03/14/22 15:37 76 years old with positive COVID-19 is evaluated for cough and earlier checked her oxygen saturation which was low. Patient is not hypoxic, tachypneic or tachycardic while in the ER. X-rays negative for any acute cardiopulmonary findings. Baseline work-up grossly unremarkable including procalcitonin. Discussed with patient and daughter about Paxilovid, went over risk and benefits and they do not want to go ahead with it. She is hemodynamically stable and not in any distress at all, she is being discharged with supportive care and outpatient follow-up. Discussed signs symptoms of worsening needing return to ER which she seems understanding. Blood Culture(s) Obtained: Yes Antibiotics given: No Counseled pt/family regarding: lab results, diagnosis, need for follow-up, rad results - Departure Departure Disposition: Home Clinical Impression: Viral syndrome, COVID-19 Condition: Stable Critical Care Time: No Referrals: MATHEW CORONA MD [Primary Care Provider] - Follow Up with PCP/3 days Instructions: Cough, Adult (DC), Viral Syndrome (DC) Additional Instructions: Continue with your inhaler Take Tylenol as needed. Follow-up with primary care for reevaluation. Return to ER for worsening cough or if having difficulty breathing etc.
== END 2022-03-14 15:50 | disposition home or self-care (01) ==
LOC: ED 13:39
DX: U07.1 COVID-19 (principal); R05.9 Cough, unspecified; R09.81 Nasal congestion; M79.10 Myalgia, unspecified site; R50.9 Fever, unspecified; R53.83 Other fatigue; E78.5 Hyperlipidemia, unspecified; I10 Essential (primary) hypertension; Z79.899 Other long term (current) drug therapy
CPT/HCPCS: 36000; 36415; 71045; 80053; 83605; 84145; 84484; 85025; 87040; 99283

== ENCOUNTER 2022-10-23 10:55 | Day surgery (SDC) | payer MEDICARE ==
[2012-07-02 10:50] VITALS: BP 128/63
[2022-10-23] MEDS ORDERED: BUPIVACAINE 0.5% VIAL IJ ONE (10:56)
[2022-10-23] MEDS ORDERED: LIDOCAINE HCL 1% 50 MG/5 ML VL PF IJ ONE (10:56)
[2022-10-23] MEDS ORDERED: Depo-Medrol 40 MG/ML IM ONE (10:56)
[2022-10-23] MEDS ORDERED: DIPRIVAN 200 MG/20 ML IV ONE (13:09)
--- NOTE | 2022-10-23 13:57 | XRAY ---
Indication: Left shoulder injection. Intraoperative fluoroscopy provided for 7 seconds. Single digital spot image submitted for interpretation demonstrate needle tip projecting over the left glenohumeral joint superiorly. Small amount of contrast injected for needle tip placement. Correlate with intraoperative findings/report.
[2022-10-23] MEDS ORDERED: Lactated Ringers 1,000 ML IV ONE (14:06)
--- NOTE | 2022-10-23 14:29 | XRAY ---
7 seconds fluoroscopy time in surgery for intra-articular injection of the left shoulder.
== END 2022-10-23 13:40 | disposition home or self-care (01) ==
LOC: SDC-PAIN 10:55
PROVIDERS: ATTEND Psychiatry & Neurology Pain Medicine
DX: M19.012 Primary osteoarthritis, left shoulder (principal); M79.18 Myalgia, other site; Z79.899 Other long term (current) drug therapy
CPT/HCPCS: 20553; 20610; 73030; 77002; 99100; J1030; J2001; J2704; Q9967

== ENCOUNTER 2023-10-08 08:54 | Day surgery (SDC) | payer MEDICARE ==
[2012-07-02 10:50] VITALS: BP 128/63
[2023-10-08] MEDS ORDERED: BUPIVACAINE 0.5% VIAL IJ ONE (08:55)
[2023-10-08] MEDS ORDERED: Depo-Medrol 40 MG/ML IM ONE (08:55)
[2023-10-08] MEDS ORDERED: DIPRIVAN 200 MG/20 ML IV ONE (10:38)
--- NOTE | 2023-10-08 11:58 | XRAY ---
Indication: Left shoulder and subacromial bursa injection. Intraoperative fluoroscopy provided for 22 seconds. 2 digital spot image submitted for interpretation demonstrates needle tip projecting over the left glenohumeral joint superiorly. Second needle tip subacromial. Small amount of contrast injected for needle tip placement. Correlate with intraoperative findings/report.
[2023-10-08] MEDS ORDERED: Lactated Ringers 1,000 ML IV ONE (13:37)
--- NOTE | 2023-10-08 13:47 | XRAY ---
22 seconds of fluoroscopy was used in surgery for a left shoulder and subacromial bursa injection.
== END 2023-10-08 11:13 | disposition home or self-care (01) ==
LOC: SDC-PAIN 08:54
PROVIDERS: ATTEND Psychiatry & Neurology Pain Medicine
DX: M19.012 Primary osteoarthritis, left shoulder (principal); M75.52 Bursitis of left shoulder
CPT/HCPCS: 20610; 73030; 77002; J1030; J2704; Q9966